=== PATIENT | male | born 1990 | race African-American/Black ===

== ENCOUNTER 2023-05-16 22:09 | Emergency (ER) | payer OTHER ==
[2023-05-16 22:44] LABS: #Basophils 0.1 thou/uL (0.0-0.2); #Eosinphils 0.1 thou/uL (0.0-0.7); #Monocytes 0.9 thou/uL (0.11-0.59); #Neutrophils 6.8 thou/uL (1.40-6.50); %Basophils 0.6 % (0.0-1.0); %Lymphocytes 34.6 % (21.0-51.0); %Monocytes 7.1 % (0.0-10.0); %Neutrophils 56.3 % (42.0-75.0); Hemoglobin 13.8 g/dL (14.0-18.0); Mean Corpuscular HGB CONC 32.6 g/dL (32.0-36.0); Mean Corpuscular Hemoglobin 26.7 pg (27.0-31.0); Mean Corpuscular Volume 81.8 fl (78.0-98.0); Mean Platelet Volume 10.6 fL (7.4-10.4); Platelet Count 290 10x3/uL (130-400); RBC Distribution Width 14.3 % (11.5-14.5); Red Blood Cell (RBC) Count 5.17 mill/uL (4.70-6.10); White Blood Cell (WBC) Count 12.1 10x3/uL (4.8-10.8)
[2023-05-16 23:07] LABS: ALT (SGPT) 21 U/L (8-55); AST (SGOT) 12 U/L (5-34); Albumin 4.1 g/dL (3.5-5.0); Alkaline Phosphatase 82 U/L (40-110); Anion Gap 15 mmol/L (10-20); BUN (Urea Nitrogen) 11 mg/dL (8.9-20.6); Bilirubin, Total 0.2 mg/dL (0.2-1.2); Calc. Creatinine Clearance 0 mL/min (70-130); Calcium 9.1 mg/dL (7.8-10.44); Carbon Dioxide 25 mmol/L (22-29); Chloride 97 mmol/L (98-107); Estimated GFR 81; Globulin 3.3 g/dL (2.4-3.5); Glucose 369 mg/dL (70-105); Protein, Total 7.4 g/dL (6.0-8.3); Sodium 133 mmol/L (136-145)
[2023-05-16] MEDS ORDERED: Insulin Regular 300 UNITS/3 ML VIAL ONE (23:23)
[2023-05-16] MEDS ORDERED: Ketorolac Tromethamine 30 MG/ML VIAL ONE (23:30)
[2023-05-17] MEDS ORDERED: Morphine 4 MG/ML VIAL ONE
[2023-05-17] MEDS ORDERED: Ondansetron PF 4 MG/2 ML Vial ONE ×2 (00:01)
== END 2023-05-17 01:34 | disposition home or self-care (01) ==
LOC: ERS 22:09
DX: K59.00 Constipation, unspecified (principal); E11.65 Type 2 diabetes mellitus with hyperglycemia; K08.89 Other specified disorders of teeth and supporting structures; F17.210 Nicotine dependence, cigarettes, uncomplicated; I25.2 Old myocardial infarction; E11.40 Type 2 diabetes mellitus with diabetic neuropathy, unspecified
CPT/HCPCS: 36415; 36416; 74176; 80053; 82010; 83690; 84443; 84484; 85025; 96361; 96374; 96375; J1815; J1885; J2270; J2405

== ENCOUNTER 2023-05-23 13:15 | Emergency (ER) | payer OTHER ==
[2023-05-23 13:50] LABS: #Basophils 0.1 thou/uL (0.0-0.2); #Eosinphils 0.1 thou/uL (0.0-0.7); #Monocytes 0.7 thou/uL (0.11-0.59); #Neutrophils 3.1 thou/uL (1.40-6.50); %Basophils 0.9 % (0.0-1.0); %Eosinophils 1.7 % (0.0-10.0); %Lymphocytes 41.1 % (21.0-51.0); %Monocytes 10.1 % (0.0-10.0); %Neutrophils 45.9 % (42.0-75.0); Hemoglobin 13.5 g/dL (14.0-18.0); Mean Corpuscular Hemoglobin 27.4 pg (27.0-31.0); Mean Platelet Volume 11.3 fL (7.4-10.4); Platelet Count 276 10x3/uL (130-400); RBC Distribution Width 14.2 % (11.5-14.5); Red Blood Cell (RBC) Count 4.93 mill/uL (4.70-6.10); White Blood Cell (WBC) Count 6.7 10x3/uL (4.8-10.8)
[2023-05-23] MEDS ORDERED: HYDROcodone/Acetaminophen 5/325 mg Tablet ONE (14:23)
[2023-05-23] MEDS ORDERED: Ketorolac Tromethamine 30 MG/ML VIAL ONE (14:23)
[2023-05-23] MEDS ORDERED: cefTRIAXone (ROCEPHIN) 1 GM VIAL ONE (14:23)
[2023-05-23 14:26] LABS: Bacteria/HPF None Seen HPF (None Seen); Bilirubin Negative (Negative); Blood, Urine Negative (Negative); CAUTI Indications for Culture Alt mental st,lethar; Clarity Clear (Clear); Glucose, Urine (Dipstick) Greater than 1000 mg/dL (Negative); Ketone, Urine Negative (Negative); Leukocyte Negative Leu/uL (Negative); Nitrite Negative (Negative); Protein, Urine (Dipstick) Negative (Neg-Trace); RBC/HPF None Seen HPF (0-3); Specific Gravity, Urine 1.041 (1.002-1.036); Squamous Epithelial 0-3 HPF (0-3); Urobilinogen Normal mg/dL (Less than 2); WBC/HPF 0-3 HPF (0-3)
[2023-05-23 14:27] LABS: Urine Culture Reflex No No
[2023-05-23 15:37] LABS: Albumin 3.4 g/dL (3.5-5.0)
[2023-05-23 15:39] LABS: Calcium 8.3 mg/dL (7.8-10.44); Chloride 105 mmol/L (98-107); Potassium 4.2 mmol/L (3.5-5.1); Sodium 139 mmol/L (136-145)
[2023-05-23 15:40] LABS: Globulin 2.7 g/dL (2.4-3.5); Glucose 294 mg/dL (70-105); Protein, Total 6.1 g/dL (6.0-8.3)
[2023-05-23 15:41] LABS: Anion Gap 12 mmol/L (10-20); Carbon Dioxide 26 mmol/L (22-29)
[2023-05-23 15:42] LABS: Bilirubin, Total Less than 0.2 mg/dL (0.2-1.2)
[2023-05-23 15:43] LABS: Alkaline Phosphatase 70 U/L (40-110); Calc. Creatinine Clearance 0 mL/min (70-130); Estimated GFR 84
[2023-05-23 15:44] LABS: BUN (Urea Nitrogen) 11 mg/dL (8.9-20.6)
[2023-05-23 15:45] LABS: AST (SGOT) 14 U/L (5-34)
[2023-05-23 15:46] LABS: ALT (SGPT) 14 U/L (8-55)
[2023-05-23] MEDS ORDERED: Insulin Regular 300 UNITS/3 ML VIAL ONE (15:53)
== END 2023-05-23 16:38 | disposition home or self-care (01) ==
LOC: ERS 13:15
DX: K04.7 Periapical abscess without sinus (principal); E11.40 Type 2 diabetes mellitus with diabetic neuropathy, unspecified; I10 Essential (primary) hypertension; F17.210 Nicotine dependence, cigarettes, uncomplicated; Z79.4 Long term (current) use of insulin
CPT/HCPCS: 36415; 36416; 71045; 80053; 81001; 85025; 93005; 96361; 96365; 96375; J0696; J1815; J1885

== ENCOUNTER 2023-05-24 12:13 | Emergency (ER) | payer OTHER | END 2023-05-24 13:45 | disposition home or self-care (01) | LOC: ERS 12:13 | DX: Z76.0 Encounter for issue of repeat prescription (principal) | CPT/HCPCS: 99281 ==

== ENCOUNTER 2024-01-23 14:21 | Emergency (ER) | payer OTHER, SELFPAY ==
[2024-01-23 15:50] LABS: #Eosinphils 0.1 thou/uL (0.0-0.7); #Monocytes 0.9 thou/uL (0.11-0.59); #Neutrophils 3.1 thou/uL (1.40-6.50); %Basophils 0.5 % (0.0-1.0); %Eosinophils 1.3 % (0.0-10.0); %Monocytes 14.1 % (0.0-10.0); %Neutrophils 50.9 % (42.0-75.0); Hematocrit 44.9 % (42.0-52.0); Hemoglobin 14.8 g/dL (14.0-18.0); Mean Corpuscular Volume 81.8 fl (78.0-98.0); Mean Platelet Volume 11.1 fL (7.4-10.4); Platelet Count 247 10x3/uL (130-400); RBC Distribution Width 13.7 % (11.5-14.5); Red Blood Cell (RBC) Count 5.49 mill/uL (4.70-6.10); White Blood Cell (WBC) Count 6.2 10x3/uL (4.8-10.8)
[2024-01-23] MEDS ORDERED: Ketorolac Tromethamine 30 MG (1 mL) VIAL ONE (16:12)
[2024-01-23 16:21] LABS: ALT (SGPT) 181 U/L (8-55); AST (SGOT) 68 U/L (5-34); Albumin 3.9 g/dL (3.5-5.0); Alkaline Phosphatase 102 U/L (40-110); Anion Gap 16 mmol/L (10-20); BUN (Urea Nitrogen) 12 mg/dL (8.9-20.6); Bilirubin, Total 0.3 mg/dL (0.2-1.2); Calc. Creatinine Clearance 0 mL/min (70-130); Calcium 9.2 mg/dL (7.8-10.44); Carbon Dioxide 25 mmol/L (22-29); Chloride 95 mmol/L (98-107); Estimated GFR 102; Globulin 3.8 g/dL (2.4-3.5); Lipase 12 U/L (8-78); Potassium 4.9 mmol/L (3.5-5.1); Protein, Total 7.7 g/dL (6.0-8.3); Sodium 131 mmol/L (136-145); Troponin I Less than 0.010 ng/mL (< 0.028)
[2024-01-23 16:26] LABS: Critical Call Chemistry NSA.VE @1625; Glucose 402 mg/dL (70-105)
[2024-01-23 16:28] LABS: Influenza A by NAA Not Detected (NotDetected); Influenza B by NAA Not Detected (NotDetected); SARS-CoV-2 NAA Rapid Test DETECTED (NotDetected)
== END 2024-01-23 16:41 | disposition home or self-care (01) ==
LOC: ERS 14:21
DX: U07.1 COVID-19 (principal); K04.7 Periapical abscess without sinus; E11.65 Type 2 diabetes mellitus with hyperglycemia; E11.40 Type 2 diabetes mellitus with diabetic neuropathy, unspecified; I11.0 Hypertensive heart disease with heart failure; I50.9 Heart failure, unspecified; F17.210 Nicotine dependence, cigarettes, uncomplicated; Z79.899 Other long term (current) drug therapy; Z79.4 Long term (current) use of insulin
CPT/HCPCS: 36416; 71045; 80053; 83690; 84484; 85025; 87081; 87430; 93005; 96372; J1885

== ENCOUNTER 2024-09-08 10:52 | Emergency (ER) | payer OTHER, SELFPAY ==
[2024-09-08] MEDS ORDERED: hydrALAZINE 20 MG/ML VIAL ONE (11:11)
[2024-09-08] MEDS ORDERED: Ketorolac Tromethamine 30 MG (1 mL) VIAL ONE (11:45)
[2024-09-08 12:20] LABS: #Basophils 0.03 10x3/uL (0.0-0.2); %Basophils 0.3 % (0.0-1.0); %Eosinophils 1.4 % (0.0-10.0); %Lymphocytes 32.4 % (21.0-51.0); %Monocytes 8.6 % (0.0-10.0); Hematocrit 42.1 % (42.0-52.0); Hemoglobin 14.1 g/dL (14.0-18.0); Mean Corpuscular HGB CONC 33.5 g/dL (32.0-36.0); Mean Corpuscular Hemoglobin 26.4 pg (27.0-31.0); Mean Corpuscular Volume 78.8 fL (78.0-98.0); Mean Platelet Volume 10.8 fL (7.4-10.4); Platelet Count 318 10x3/uL (130-400); RBC Distribution Width 13.1 % (11.5-14.5); Red Blood Cell (RBC) Count 5.34 mill/uL (4.70-6.10)
[2024-09-08 12:44] LABS: Phosphorus 3.2 mg/dL (2.3-4.7)
[2024-09-08 12:47] LABS: ALT (SGPT) 21 U/L (8-55); AST (SGOT) 27 U/L (5-34); Albumin 3.4 g/dL (3.5-5.0); Alkaline Phosphatase 84 U/L (40-110); Anion Gap 14 mmol/L (10-20); BUN (Urea Nitrogen) 6 mg/dL (8.9-20.6); Bilirubin, Total 0.2 mg/dL (0.2-1.2); Calc. Creatinine Clearance 0 mL/min (70-130); Calcium 8.3 mg/dL (7.8-10.44); Carbon Dioxide 20 mmol/L (22-29); Chloride 103 mmol/L (98-107); Estimated GFR 114; Globulin 3.7 g/dL (2.4-3.5); Glucose 319 mg/dL (70-105); Lipase 27 U/L (8-78); Magnesium 1.8 mg/dL (1.6-2.6); Potassium 4.5 mmol/L (3.5-5.1); Protein, Total 7.1 g/dL (6.0-8.3); Sodium 132 mmol/L (136-145)
[2024-09-08 13:38] LABS: Troponin I Less than 0.010 ng/mL (< 0.028)
[2024-09-08] MEDS ORDERED: cefTRIAXone (ROCEPHIN) 2 GM VIAL ONE (15:01)
[2024-09-08] MEDS ORDERED: Insulin Lispro 100 UNIT/ML 10 ML VIAL SC SCH (15:15)
[2024-09-08] MEDS ORDERED: Insulin Regular, Human 100 UNIT/ML 10 ML VIAL ONE (15:26)
== END 2024-09-08 14:33 | disposition home or self-care (01) ==
LOC: ERS 10:52
DX: K02.9 Dental caries, unspecified (principal); I10 Essential (primary) hypertension; E11.65 Type 2 diabetes mellitus with hyperglycemia; F17.210 Nicotine dependence, cigarettes, uncomplicated; I11.0 Hypertensive heart disease with heart failure; I50.9 Heart failure, unspecified; I25.2 Old myocardial infarction; E11.40 Type 2 diabetes mellitus with diabetic neuropathy, unspecified; Z86.73 Personal history of transient ischemic attack (TIA), and cerebral infarction without residual deficits
CPT/HCPCS: 36416; 70450; 71045; 80053; 82010; 83690; 83735; 83880; 84100; 84484; 85025; 93005; 96374; 96375; J0360; J0696; J1815; J1885

== ENCOUNTER 2025-06-29 05:49 | Emergency (ER) | payer OTHER ==
[2025-06-29] MEDS ORDERED: Orphenadrine Citrate 100 MG ER.TAB ONE (07:07)
[2025-06-29] MEDS ORDERED: HYDROcodone/Acetaminophen 5/325 mg Tablet ONE (07:07)
[2025-06-29] MEDS ORDERED: Gabapentin 100 MG CAP ONE (07:10)
[2025-06-29] MEDS ORDERED: Ketorolac Tromethamine 30 MG (1 mL) VIAL ONE (08:54)
== END 2025-06-29 09:05 | disposition home or self-care (01) ==
LOC: ERS 05:49
DX: M54.50 Low back pain, unspecified (principal); I11.0 Hypertensive heart disease with heart failure; I50.9 Heart failure, unspecified; E11.40 Type 2 diabetes mellitus with diabetic neuropathy, unspecified; I25.2 Old myocardial infarction; F17.210 Nicotine dependence, cigarettes, uncomplicated; Z86.73 Personal history of transient ischemic attack (TIA), and cerebral infarction without residual deficits; W18.30XA Fall on same level, unspecified, initial encounter
CPT/HCPCS: 72131; 96372; J1885